=== PATIENT | male | born 1950 | race Caucasian/White ===

== ENCOUNTER 2023-12-02 07:53 | Emergency (ER) | payer MEDICARE ==
[~2023-12-02] VITALS: Ht 177.8 cm; Wt 95.3 kg
[2023-12-02 08:36] LABS: BASO % 0.4 % (0.0-1.0); EOS % 0.5 % (1.0-4.0); LYMPH # 1.2 10*3/uL (1.3-4.4); LYMPH % 15.8 % (27.0-41.0); MEAN CELL VOLUME 90.2 fl (80.0-94.0); MEAN CORPUSCULAR HGB 31.4 pg (27.0-31.0); MEAN CORPUSCULAR HGB CONC 34.8 g/dl (33.0-37.0); MEAN PLATELET VOLUME 8.6 fl (9.6-12.3); MONO # 1.4 10*3/uL (0.1-1.0); MONO % 18.6 % (3.0-9.0); NEUT # 4.7 10*3/uL (2.3-7.9); NEUT % 64.4 % (47.0-73.0); PLATELET COUNT AUTOMATED 197 10*3/uL (130-400); RED BLOOD COUNT 4.88 10*6/uL (4.50-5.90); RED CELL DISTRI WIDTH 12.3 % (0-14.5); WHITE BLOOD COUNT 7.3 10*3/uL (4.8-10.8)
[2023-12-02 08:52] LABS: POTASSIUM 4.6 mmol/L (3.4-5.1)
[2023-12-02] MEDS ORDERED: PAXLOVID 150-11 EAC2 PO (09:37)
== END 2023-12-02 09:58 | disposition home or self-care (01) ==
LOC: ED 07:53
PROVIDERS: Internal Medicine
DX: U07.1 COVID-19 (principal); I10 Essential (primary) hypertension; I25.10 Atherosclerotic heart disease of native coronary artery without angina pectoris